=== PATIENT | male | born 1935 | race Caucasian/White ===

== ENCOUNTER 2016-09-29 07:01 | Day surgery (SDC) | payer MEDICARE, BC ==
[~2016-09-29] VITALS: Ht 177.8 cm; Wt 100.9 kg
[2016-09-29] VITALS (315 sets, daily range): BP systolic 108–138; BP diastolic 82–102; PULSE 26–687; TEMP 97.5–98.4; O2SAT 88–98
[~2016-09-29 07:01] MED LIST: ADALAT CC30 MG PO; ADVIL200 MG PO; ALEVE 220MG220 MG PO; ASPIRIN 32325 MG/TAB PO; BETAPACE 120MG120 MG PO; BETAPACE 80MG80 MG PO; CALCIUM 600-D 61 TAB PO; CAPOTEN 50MG50 MG PO; CARDI-OMEGA1000 MG PO; CEPHALEXIN500 M1 PO; COREG 25MG25 MG/TAB PO; COUMADIN 1MG1 MG/TAB PO; COUMADIN 5MG5 MG/TAB PO; COUMADIN 6MG6 MG/TAB PO; FORTICAL200 IU/ACT NS; HCTZ 25MG TAB25 MG PO; IMDUR 60MG60 MG/TAB PO; ISOSORBIDE MON120 MG PO; K-DUR 10 MEQ T10 MEQ PO; LEVOXYL0.075 MG PO; LOPRESSOR100 MG PO; MIRALAX PA17 GM/Dose PO; MUCINEX 60600 MG/TA1 PO; NITROSTAT0.4 MG/TAB SL; NORVASC 10MG10 MG PO; OXYGEN; PRAVACHOL 40MG40 MG PO; PRILOSEC 20MG20 MG PO; PROAIR HFA0.09 MG/AC IH; TRICOR145 MG PO; TYLENOL PM EXTR1 TA1 PO; XANAX .25M0.25 MG/TA PO
[2016-09-29 08:10] LABS: INR 1.5 (0.8-3.0); PROTHROMBIN TIME 16.3 SECONDS (9.7-12.8)
[2016-09-29 08:11] LABS: HEMATOCRIT 42.8 % (42.0-52.0); MEAN CELL VOLUME 91 fl (80.0-100.0); MEAN CORPUSCULAR HEMOGLOBIN 30 pg (27.0-31.0); MEAN CORPUSCULAR HGB CONC 33 g/dl (33.0-37.0); MEAN PLATELET VOLUME 9.5 fl (7.4-10.4); PLATELET COUNT 194 K/mm3 (130-400); RED BLOOD COUNT 4.73 M/mm3 (4.20-5.60); REDCELL DISTRIBUTION WIDTH-CV 13.6 % (11.5-14.5)
[2016-09-29 08:16] LABS: CALCIUM 9.7 mg/dL (8.4-10.2); CREATININE, serum 1.8 mg/dL (0.66-1.25); POTASSIUM 4.6 mmol/L (3.4-5.0)
[2016-09-29] MEDS ORDERED: PRAVACHOL80 MG PO (08:42)
[2016-09-29] MEDS ORDERED: ALDACTONE 25MG25 M1 PO (08:44)
[2016-09-29] MEDS ORDERED: IMDUR 60MG60 MG/TAB PO (08:45)
[2016-09-29] MEDS ORDERED: HCTZ 25MG TAB25 MG PO (09:05)
[2016-09-29] MEDS ORDERED: CAPOTEN 50MG50 MG PO (09:06)
[2016-09-29] MEDS ORDERED: OXYGEN MC (09:07)
[2016-09-29] MEDS ORDERED: PRIL40 PO (09:07)
[2016-09-30] VITALS (588 sets, daily range): BP systolic 114–153; BP diastolic 73–93; PULSE 69; TEMP 98–98.2; O2SAT 67–98
[2016-09-30 06:39] LABS: CALCIUM 9.7 mg/dL (8.4-10.2); CREATININE, serum 1.67 mg/dL (0.66-1.25); POTASSIUM 4.3 mmol/L (3.4-5.0)
[2016-09-30 06:45] LABS: BASO % 0.3 % (0.0-2.0); EOS # 0.1 (0.0-0.7); EOS % 1.3 % (0-4.0); GRAN # 6.8 (1.4-6.5); GRAN % 71.6 % (42.2-75.2); HEMATOCRIT 44.9 % (42.0-52.0); HEMOGLOBIN 14.7 g/dl (13.5-18.0); LYMPH # 1.5 (1.2-3.4); LYMPH % 15.4 % (20.0-51.0); MEAN CELL VOLUME 89 fl (80.0-100.0); MEAN CORPUSCULAR HEMOGLOBIN 29 pg (27.0-31.0); MEAN CORPUSCULAR HGB CONC 33 g/dl (33.0-37.0); MEAN PLATELET VOLUME 9.6 fl (7.4-10.4); MONO % 10.9 % (1.7-9.3); PLATELET COUNT 209 K/mm3 (130-400); RED BLOOD COUNT 5.03 M/mm3 (4.20-5.60); REDCELL DISTRIBUTION WIDTH-CV 13.7 % (11.5-14.5); WHITE BLOOD COUNT 9.5 K/mm3 (4.8-10.8)
== END 2016-09-30 13:18 | disposition home or self-care (01) ==
LOC: COL.RAD 07:01 → IMCU 13:39 → COL.RAD 09-30 13:18
PROVIDERS: Internal Medicine Cardiovascular Disease
DX: I25.5 Ischemic cardiomyopathy (principal); I25.10 Atherosclerotic heart disease of native coronary artery without angina pectoris; I25.82 Chronic total occlusion of coronary artery; I10 Essential (primary) hypertension; J44.9 Chronic obstructive pulmonary disease, unspecified; I27.2 Other secondary pulmonary hypertension; Z87.891 Personal history of nicotine dependence; I50.9 Heart failure, unspecified; Z85.89 Personal history of malignant neoplasm of other organs and systems; Z80.0 Family history of malignant neoplasm of digestive organs; Z95.810 Presence of automatic (implantable) cardiac defibrillator
CPT/HCPCS: OP; C1725; C1760; C1769; C1874; C1887; C1894; C9600; J0583; J2250; J3010; Q9967

== ENCOUNTER → 2016-10-15 | Outpatient (CLI) | payer MEDICARE, BC ==
[~2016-10-15] MED LIST changes: +ALDACTONE 25MG25 M1 PO; +OXYGEN MC; +PRAVACHOL80 MG PO; +PRIL40 PO
== END ==
LOC: COL.PUL 10:34
DX: Z01.89 Encounter for other specified special examinations (principal)

== ENCOUNTER → 2016-11-08 | Outpatient (CLI) | payer MEDICARE, BC | LOC: COL.PUL 10:53 | DX: I27.0 Primary pulmonary hypertension (principal) ==